=== PATIENT | female | born 1975 | race African-American/Black ===

== ENCOUNTER → 2016-12-07 | Outpatient (CLI) | payer MEDICARE, OTHER ==
[~2016-12-07] MED LIST: AUGMENTIN PO; KETOPROFEN PO; TOBREX5 ML OS; ZADITOR5 M1 OS
--- NOTE | ~2016-12-07 | MR61 ---
[facility] A Service of [facility] RADIOLOGY TEXT RESULTS PATIENT: NILAY FOSTER LOCATION: [facility] : 75 UNIT #: [id number] AGE: [address]: Geetha Khanna MD SEX: F ORDER DR: [id number] [facility]. [place], [place] [address] [id number] O MR#: [id number] Acc #: [id number] NAME: NILAY FOSTER : 1975 SEX: F STUDY DATE/TIME: 12/07/2016 9:24 UNIT: [facility] ROOM: STUDY DESCRIPTION: MR Foot Wo Contrast Rt Attending Physician: Geetha Khanna M.D. Referring Physician: Geetha Khanna M.D. Ordering Physician: Geetha Khanna M.D. Primary Care Physician: Geetha Khanna M.D. MRI CENTER REPORT This report is preliminary unless electronic signature is present. EXAM MRI of the right foot without contrast HISTORY 41-year-old female diabetic with lateral foot pain for several months. Clinical concern for fifth metatarsal base. COMPARISON Right foot film 11/29/2016. TECHNIQUE Multiplanar, multiecho imaging is performed of the right foot utilizing a high-field magnet and dedicated protocol. A gel capsule is placed over the lateral ankle corresponding to the site of patient's pain. FINDINGS Bone structure and alignment appears normal. No focal marrow edema identified. No evidence of stress reaction or stress fracture. Joint space is maintained. Mild thickening and increased signal within the peroneus longus tendon suggests mild tendinopathy. No high-grade tendinopathy or tear. Ankle ligaments appear normal. Minimal ankle effusion. A 1.4 cm cystic collection seen along the anterior aspect of the talonavicular joint may represent a ganglion cyst. Plantar fascia unremarkable. IMPRESSION 1. Minimal peroneus longus tendinopathy. No evidence of tear. 2. Small ankle effusion. 3. Fluid along the anterolateral aspect of the talonavicular joint may represent part of an effusion or possibly a ganglion cyst. STS[facility] A Service of [facility] RADIOLOGY TEXT RESULTS PATIENT: NILAY FOSTER [facility] UNIT #: [id number] AGE: [address]: Geetha Khanna MD SEX: F ORDER DR: Dictated by... Eulalio Krishna M.D. THIS IS AN ELECTRONICALLY VERIFIED REPORT Eulalio Krishna M.D. at 12/11/2016 9:02 AM KALLIE/sharon TD: 12/10/2016 12:06 JOB #: [id number] MRI CENTER REPORT Page 1 of 1 COPY
== END | disposition home or self-care (01) ==
LOC: CMRI 08:15
DX: M79.671 Pain in right foot (principal); M25.471 Effusion, right ankle
CPT/HCPCS: 73718